=== PATIENT | female | born 1960 | race Caucasian/White ===

== ENCOUNTER → 2018-01-12 | Outpatient (REF) ==
[2018-01-14 14:17] LABS: QUANTIFERON GOLD TB Positive (Negative); TB Test (QFT) Antigen 6.35 IU/mL (.); TB Test (QFT) Antigen Minus Ni 6.28 IU/mL (.); TB Test (QFT) Mitogen 7.51 IU/mL (.); TB Test (QFT) Nil 0.07 IU/mL (.)
== END ==
LOC: M LAB 14:08
DX: Z00.00 Encounter for general adult medical examination without abnormal findings (principal)

== ENCOUNTER 2018-12-24 11:28 | Day surgery (SDC) | payer OTHER ==
[~2018-12-24] VITALS: Ht 168.9 cm; Wt 64.9 kg
[~2018-12-24 11:28] MED LIST: DRIS50003 PO; ESCI10TA2 PO; NS 1,000 ML IV ONE; OMEP10CASR PO; PRIL20CA9 PO
--- NOTE | 2018-12-24 13:18 | ROOR ---
Patient Name: Ligia Bonner Procedure Date: 12/24/2018 12:39 PM Date of : 1960 Age: 58 Room: [facility] Gender: Female Note Status: Finalized Procedure: Total Colonoscopy to Cecum + Cold Snare Polypectomy + Hemoclips Indications: High risk colon cancer surveillance: Personal history of colonic polyps, Last colonoscopy: 2014 Providers: Rachid Winters MD Referring MD: NADEGE RAMESH MD Requesting Provider: Medicines: Monitored Anesthesia Care Complications: No immediate complications. Procedure: Pre-Anesthesia Assessment: - The heart rate, respiratory rate, oxygen saturations, blood pressure, adequacy of pulmonary ventilation, and response to care were monitored throughout the procedure. The Colonoscope was introduced through the anus and advanced to the cecum, identified by appendiceal orifice and ileocecal valve. The colonoscopy was performed without difficulty. The patient tolerated the procedure well. The quality of the bowel preparation was excellent. Findings: The perianal and digital rectal examinations were normal. Non-bleeding internal hemorrhoids were found during retroflexion. The hemorrhoids were medium-sized and Grade I (internal hemorrhoids that do not prolapse). Multiple small and large-mouthed diverticula were found in the recto-sigmoid colon, sigmoid colon and descending colon. Multiple sessile polyps were found in the ascending colon. The polyps were small in size. These polyps were removed with a cold snare. Resection and retrieval were complete. The exam was otherwise without abnormality on direct and retroflexion views. Impression: - Non-bleeding internal hemorrhoids. - Diverticulosis in the recto-sigmoid colon, in the sigmoid colon and in the descending colon. - Multiple small polyps in the ascending colon, removed with a cold snare. Resected and retrieved. - The examination was otherwise normal on direct and retroflexion views. - The exam was otherwise normal to the cecum. Recommendation: - Patient has a contact number available for emergencies. The signs and symptoms of potential delayed complications were discussed with the patient. Return to normal activities tomorrow. Written discharge instructions were provided to the patient. - High fiber diet. - Discharge patient to home. - Continue present medications. - Await pathology results. - Telephone GI clinic for pathology results in 1 week. - Repeat colonoscopy for surveillance based on pathology results. - Return to referring physician. - Check Portal Online for Path Results.([email or web address] - The findings and recommendations were discussed with the patient's family. Rachid Winters MD Rachid Winters MD 12/24/2018 1:17:36 PM Electronically signed by Rachid Winters MD Number of Addenda: 0 Note Initiated On: 12/24/2018 12:39 PM Estimated Blood Loss: Estimated blood loss: none.
[2018-12-24 13:35] VITALS: BP 122/74
== END 2018-12-24 13:48 | disposition home or self-care (01) ==
LOC: M OPP 11:28
PROVIDERS: ATTEND Internal Medicine Gastroenterology
DX: Z86.010 Personal history of colon polyps (principal); Z80.0 Family history of malignant neoplasm of digestive organs; K63.5 Polyp of colon; K64.0 First degree hemorrhoids; K57.30 Diverticulosis of large intestine without perforation or abscess without bleeding; R12 Heartburn; F41.9 Anxiety disorder, unspecified; F17.210 Nicotine dependence, cigarettes, uncomplicated; Z79.899 Other long term (current) drug therapy

== ENCOUNTER → 2019-06-20 | Outpatient (CLI) | payer OTHER ==
[~2019-06-20] MED LIST changes: -NS 1,000 ML IV ONE
--- NOTE | 2019-06-20 16:32 | REP ---
Left hand series: Four views. History: Pain in the left thumb. Findings: Four views left hand demonstrate moderate osteoarthritic spurring at the first carpometacarpal articulation. Overall mineralization pattern is normal. No erosive changes seen. Impression: First carpometacarpal joint osteoarthritis. No acute bony abnormality. Electronically Signed by Bob Varghese MD 06/20/2019 04:23 P
== END ==
LOC: M ADAMS 15:57
PROVIDERS: ATTEND Physician Assistant Medical
DX: M79.645 Pain in left finger(s) (principal); M19.042 Primary osteoarthritis, left hand

== ENCOUNTER → 2019-07-08 | Outpatient (CLI) | payer OTHER ==
--- NOTE | 2019-07-08 17:36 | REP ---
LOW DOSE LUNG SCREENING CT: Low dose lung screening CT performed in the axial plane. No abnormal lung opacities are seen. No suspicious nodule is seen in either lung. There is some mild fibrotic scarring in the lingula. Heart is normal in size. There is no mediastinal contour abnormality. There are mild degenerative changes of the spine. IMPRESSION: Lung-RADS category [address] of the lungs. No suspicious nodule. Recommend followup study in one year. Electronically Signed by Sabas Leal MD 07/12/2019 04:25 P
== END ==
LOC: M RAD 14:50
PROVIDERS: ATTEND Physician Assistant Medical
DX: F17.210 Nicotine dependence, cigarettes, uncomplicated (principal)